=== PATIENT | female | born 1955 | race Caucasian/White ===

== ENCOUNTER → 2017-08-03 | Day surgery (SDC) | payer BC ==
[2017-08-03 13:36] VITALS: RESP 16; BMI 36.6
[2017-08-03 15:33] VITALS: BP 129/82; PULSE 66; TEMP 97.5
--- NOTE | 2017-08-03 15:34 | MM ---
EXAMINATION TYPE: MG stereo VAD BX RT DATE OF EXAM: 08/03/2017 COMPARISON: Outside mammogram and ultrasound July 23 2017 and screening mammogram July 20, 2017 CLINICAL HISTORY: Abnormal outside mammogram and ultrasound. TECHNIQUE: Stereotactic guided core biopsy of right breast with clip placement and follow-up two-view mammogram. FINDINGS: The procedure of stereotactic guided core biopsy was explained to the patient. Benefits, alternatives, and risks were discussed. An informed consent was then obtained. Shortest pathway was lateral approach. Cranial approach was chosen by technologist. I performed the localization, then performed the remainder of the procedure. A vacuum assisted biopsy gun was used to obtain multiple core samples. The patient tolerated the procedure well without any immediate complication. The patient was kept in the radiology department for short stay after the procedure and then discharged home in stable condition. Post biopsy mammogram shows the clip to appear in satisfactory position relative to the targeted area of concern on the preprocedure images. Prior persistent density is less well seen after biopsy particularly on CC view. IMPRESSION: SUCCESSFUL, UNCOMPLICATED STEREOTACTIC GUIDED CORE BIOPSY OF AREA OF CONCERN IN THE RIGHT BREAST, FULL PATHOLOGY RESULTS TO FOLLOW. Low to intermediate index of suspicion noted at time of procedure. Pathology Results: Benign BREAST, RIGHT, STEREOTACTIC CORE BIOPSY: FIBROCYSTIC CHANGE (STROMAL FIBROSIS, CYST FORMATION, ADENOSIS, COLUMNAR CELL CHANGE AND DUCT HYPERPLASIA). PSEUDOANGIOMATOUS STROMAL HYPERPLASIA (PASH). Recommendation Surgical consult of the right breast. (PASH) ELAINE
== END ==
LOC: RADMAMWWP 13:18
PROVIDERS: ATTEND Surgery
DX: N60.31 Fibrosclerosis of right breast (principal); N60.01 Solitary cyst of right breast; N60.21 Fibroadenosis of right breast; R92.8 Other abnormal and inconclusive findings on diagnostic imaging of breast
CPT/HCPCS: 88305; 19081; A4648; J2001

== ENCOUNTER → 2019-09-15 | Outpatient (CLI) | payer MEDICARE ==
--- NOTE | 2019-09-15 14:14 | MM ---
Reason for exam: screening (asymptomatic). Last mammogram was performed 1 year and 1 month ago. History: Patient is postmenopausal. Benign MG stereo VAD BX RT of the right breast, August 03, 2017. Took hormonal contraceptives for 30 years. Physical Findings: A clinical breast exam by your physician is recommended on an annual basis and results should be correlated with mammographic findings. MG 3D Screening Mammo W/Cad Bilateral CC and MLO view(s) were taken. Prior study comparison: August 23, 2018, bilateral MG 3d screening mammo w/cad. August 03, 2017, mammogram, performed at [facility]. There are scattered fibroglandular densities. There are benign appearing round calcifications bilaterally. Previous mammotome biopsy in the right breast at [facility]. There is chronic nodularity in the right breast. There is no discrete abnormality. ASSESSMENT: Benign, BI-RAD 2 RECOMMENDATION: Routine screening mammogram of both breasts in 1 year.
== END ==
LOC: RADMAMWWP 07:06
PROVIDERS: ATTEND Family Medicine
DX: Z12.31 Encounter for screening mammogram for malignant neoplasm of breast (principal)
CPT/HCPCS: 77063; 77067

== ENCOUNTER → 2021-03-13 | Outpatient (CLI) | payer MEDICARE ==
--- NOTE | 2021-03-14 11:27 | MM ---
Reason for exam: screening (asymptomatic). Last mammogram was performed 1 year and 6 months ago. History: Patient is postmenopausal. Benign MG stereo VAD BX RT of the right breast, August 03, 2017. Took hormonal contraceptives for 30 years. Physical Findings: A clinical breast exam by your physician is recommended on an annual basis and results should be correlated with mammographic findings. MG 3D Screening Mammo W/Cad Bilateral CC and MLO view(s) were taken. Prior study comparison: September 15, 2019, bilateral MG 3d screening mammo w/cad. August 23, 2018, bilateral MG 3d screening mammo w/cad. There are scattered fibroglandular densities. There are benign appearing round dystrophic calcifications bilaterally. Previous mammotome biopsy in the right breast. There is chronic nodularity in the right breast at clip. There is no new dominant lesion. Asymmetric breast tissue in the left breast, stable. ASSESSMENT: Benign, BI-RAD 2 RECOMMENDATION: Routine screening mammogram of both breasts in 1 year.
== END | disposition home or self-care (01) ==
LOC: RADMAMWWP 07:55
PROVIDERS: ATTEND Family Medicine
DX: Z12.31 Encounter for screening mammogram for malignant neoplasm of breast (principal); Z78.0 Asymptomatic menopausal state
CPT/HCPCS: 77063; 77067

== ENCOUNTER → 2023-08-17 | Outpatient (CLI) | payer MEDICARE ==
--- NOTE | 2023-08-17 09:38 | MM ---
Reason for Exam: Screening (asymptomatic). Last mammogram was performed 1 year(s) and 3 month(s) ago. Patient History: Menarche at age 10. First Full-Term at age 23. Postmenopausal. Patient used Hormonal Contraceptives for 30 years. 08/03/2017, Benign Core Biopsy on the right side. Paternal cousin had breast cancer, age 24. Risk Values: Sheyla 5 year model risk: 2.3%. NCI Lifetime model risk: 6.6%. Prior Study Comparison: 09/15/2019 Bilateral Screening Mammogram, [facility]. 03/13/2021 Bilateral Screening Mammogram, [facility]. 06/02/2022 Bilateral MG 3D screening mammo w/cad, [facility]. Tissue Density: There are scattered fibroglandular densities. Findings: Analyzed By CAD. Asymmetric prominent tissue with biopsy clip in the posterior upper outer aspect right breast is redemonstrated. Benign calcifications redemonstrated within the right breast. Stable prominent tissue in the posterior upper outer aspect left breast. No new suspicious mass within either breast. No suspicious grouped calcifications within either breast. Overall Assessment: Benign, BI-RAD 2 Management: Screening Mammogram of both breasts in 1 year. A clinical breast exam by your physician is recommended on an annual basis and results should be correlated with mammographic findings. Note on Sheyla scores and lifetime risk: 1. A Sheyla score greater than 3% is considered moderate risk. If this is the case, consider specialist referral to assess eligibility for a risk reducing agent. If overall lifetime risk for the development of breast cancer is 20% or higher, the patient may qualify for future screening with alternating mammogram and breast MRI. Electronically signed and approved by: German Clifford D.O.
== END | disposition home or self-care (01) ==
LOC: RADMAMWWP 09:11
PROVIDERS: ATTEND Family Medicine
DX: Z12.31 Encounter for screening mammogram for malignant neoplasm of breast (principal); Z78.0 Asymptomatic menopausal state; Z80.3 Family history of malignant neoplasm of breast
CPT/HCPCS: 77063; 77067

== ENCOUNTER → 2023-11-04 | Outpatient (CLI) | payer MEDICARE ==
--- NOTE | 2023-11-05 09:53 | CA ---
Transthoracic Echo Report Name: Ivette Platt Age: 68 Gender: F : 1955 Exam Date: 11/04/2023 12:58 Exam Location: [facility] Ht (in): 62 Wt (lb): 190 Ordering Physician: Michael Laughlin MD Attending/Referring Phys: Sherry Adan [facility] [employer] Hoda Allen RDCS Procedure CPT: Indications: Z78.0 ASYMPTOMATIC MENOPAUSAL STATE I10 HTN Cardiac Hx: Technical Quality: Fair Contrast 1: Total Dose (mL): Contrast 2: Total Dose (mL): MEASUREMENTS (Male / Female) Normal Values 2D ECHO LV Diastolic Diameter PLAX 2.5 cm 4.2 - 5.9 / 3.9 - 5.3 cm LV Systolic Diameter PLAX 1.6 cm IVS Diastolic Thickness 1.5 cm 0.6 - 1.0 / 0.6 - 0.9 cm LVPW Diastolic Thickness 1.3 cm 0.6 - 1.0 / 0.6 - 0.9 cm LV Relative Wall Thickness 1.1 RV Internal Dim ED PLAX 2.9 cm LA Volume 46.4 cm??? 18 - 58 / 22 - 52 cm??? LA Volume Index 23.4 cm???/m??? 16 - 28 cm???/m??? M-MODE Aortic Root Diameter MM 3.1 cm LA Systolic Diameter MM 4.4 cm LA Ao Ratio MM 1.4 DOPPLER AV Peak Velocity 187.6 cm/s AV Peak Gradient 14.1 mmHg AV Mean Velocity 126.0 cm/s AV Mean Gradient 7.3 mmHg AV Velocity Time Integral 32.6 cm LVOT Peak Velocity 154.5 cm/s LVOT Peak Gradient 9.5 mmHg LVOT Velocity Time Integral 29.5 cm MV Area PHT 3.2 cm??? Mitral E Point Velocity 81.2 cm/s Mitral A Point Velocity 107.3 cm/s Mitral E to A Ratio 0.8 MV Deceleration Time 234.8 ms MV E' Velocity 8.8 cm/s Mitral E to MV E' Ratio 9.2 TR Peak Velocity 215.9 cm/s TR Peak Gradient 18.6 mmHg Right Ventricular Systolic Press 22.3 mmHg FINDINGS Left Ventricle Moderately increased left ventricular wall thickness. Left ventricular cavity size normal. Normal left ventricular systolic function with no obvious regional wall motion abnormalities. Left ventricular ejection fraction is estimated at 55-60 %. Right Ventricle Normal right ventricular size and function. Right ventricular systolic pressure within normal limits. Right Atrium Normal right atrial size. Left Atrium Normal left atrial size. Mitral Valve Structurally normal mitral valve. Mild mitral annular calcification. Trace mitral regurgitation. Aortic Valve No aortic valve stenosis or regurgitation. Thickened aortic valve without stenosis. Tricuspid Valve Structurally normal tricuspid valve. Trace tricuspid regurgitation. Pulmonic Valve Structurally normal pulmonic valve. Pericardium No pericardial effusion. Aorta Normal size aortic root and proximal ascending aorta. CONCLUSIONS Normal LV systolic function Previewed by: Dr. Haja Chu MD (Electronically Signed) Final Date: 05 November 2023 09:52
== END | disposition home or self-care (01) ==
LOC: RADECHMAIN 12:45
PROVIDERS: ATTEND Family Medicine
DX: I10 Essential (primary) hypertension (principal); Z78.0 Asymptomatic menopausal state
CPT/HCPCS: 93306

== ENCOUNTER → 2025-01-23 | Outpatient (CLI) | payer MEDICARE ==
--- NOTE | 2025-01-23 10:51 | MM ---
Reason for Exam: Screening (asymptomatic). Last mammogram was performed 1 year(s) and 5 month(s) ago. Patient History: Menarche at age 10. First Full-Term at age 23. Postmenopausal. Patient used Hormonal Contraceptives for 30 years. 08/03/2017, Benign Core Biopsy on the right side. Paternal cousin had breast cancer, age 24. Risk Values: Sheyla 5 year model risk: 2.3%. NCI Lifetime model risk: 6.3%. Prior Study Comparison: 03/13/2021 Bilateral Screening Mammogram, [facility]. 06/02/2022 Bilateral MG 3D screening mammo w/cad, [facility]. 08/17/2023 Bilateral MG 3D screening mammo w/cad, [facility]. Tissue Density: There are scattered areas of fibroglandular density. Findings: Analyzed By CAD. Stable biopsy clip at the site of asymmetric tissue in the right breast. There is a new 9 mm oval mass in the middle depth outer aspect left breast. Overall Assessment: Incomplete: need additional imaging evaluation, BI-RAD 0 Management: Diagnostic Mammogram of the left breast. Diagnostic Breast Ultrasound of the left breast. Advised 3-D true lateral view and targeted ultrasound evaluation of new area of concern left breast. Patient should continue monthly self-breast exams. A clinical breast exam by your physician is recommended on an annual basis. This exam should not preclude additional follow-up of suspicious palpable abnormalities. Note on Sheyla scores and lifetime risk: 1. A Sheyla score greater than 3% is considered moderate risk. If this is the case, consider specialist referral to assess eligibility for a risk reducing agent. 2. If overall lifetime risk for the development of breast cancer is 20% or higher, the patient may qualify for future screening with alternating mammogram and breast MRI. [facility], , 01/23/2025 10:48 AM. Electronically signed and approved by: Tim Cain M.D.
== END | disposition home or self-care (01) ==
LOC: RADMAMWWP 10:02
PROVIDERS: ATTEND Family Medicine
DX: Z12.31 Encounter for screening mammogram for malignant neoplasm of breast (principal); R92.323 Mammographic fibroglandular density, bilateral breasts; Z78.0 Asymptomatic menopausal state; Z80.3 Family history of malignant neoplasm of breast; Z92.0 Personal history of contraception
CPT/HCPCS: 77063; 77067

== ENCOUNTER → 2025-01-30 | Outpatient (CLI) | payer MEDICARE ==
--- NOTE | 2025-01-30 15:29 | MM ---
Reason for Exam: Additional evaluation requested from abnormal screening. Last screening mammogram was performed less than 1 month ago. Patient History: Menarche at age 10. First Full-Term at age 23. Postmenopausal. Patient used Hormonal Contraceptives for 30 years. 08/03/2017, Benign Core Biopsy on the right side. Paternal cousin had breast cancer, age 24. Risk Values: Sheyla 5 year model risk: 2.3%. NCI Lifetime model risk: 6.3%. Prior Study Comparison: 06/02/2022 Bilateral MG 3D screening mammo w/cad, [facility]. 08/17/2023 Bilateral MG 3D screening mammo w/cad, [facility]. 01/23/2025 Bilateral MG 3D screening mammo w/cad, [facility]. Tissue Density: Left: The breasts are heterogeneously dense, which may obscure small masses. Findings: Analyzed By CAD. Nodular asymmetric density upper outer left breast 7.5 cm from the nipple measuring 9 mm. Ultrasound is recommended. Overall Assessment: Incomplete: need additional imaging evaluation, BI-RAD 0 Management: Diagnostic Breast Ultrasound of the left breast. . Results were given to the patient verbally at the time of exam. Patient should continue monthly self-breast exams. A clinical breast exam by your physician is recommended on an annual basis. This exam should not preclude additional follow-up of suspicious palpable abnormalities. Note on Sheyla scores and lifetime risk: 1. A Sheyla score greater than 3% is considered moderate risk. If this is the case, consider specialist referral to assess eligibility for a risk reducing agent. 2. If overall lifetime risk for the development of breast cancer is 20% or higher, the patient may qualify for future screening with alternating mammogram and breast MRI. [facility], , 01/30/2025 3:16 PM. Electronically signed and approved by: Robert Stewart M.D. Radiologis
--- NOTE | 2025-01-30 15:37 | USB ---
Reason for Exam: Additional evaluation requested from abnormal screening. Patient History: Menarche at age 10. First Full-Term at age 23. Postmenopausal. Patient used Hormonal Contraceptives for 30 years. 08/03/2017, Benign Core Biopsy on the right side. Paternal cousin had breast cancer, age 24. Risk Values: Sheyla 5 year model risk: 2.3%. NCI Lifetime model risk: 6.3%. Technique: Method: Targeted. Doppler: Color. Patient Position: RPO. Prior Study Comparison: 06/02/2022 Bilateral MG 3D screening mammo w/cad, [facility]. 08/17/2023 Bilateral MG 3D screening mammo w/cad, [facility]. 01/23/2025 Bilateral MG 3D screening mammo w/cad, [facility]. Findings: The upper outer quadrant of the left breast, the axilla of the left breast and the retroareolar of the left breast were scanned. Elongated hypoechoic area likely reflecting a cyst cluster at the left 3:00 position 7 cm from the nipple measuring 7 mm in size. There is also a mildly prominent lymph node within the left axilla without cortical thickening. Six-month follow-up is recommended for both areas. Overall Assessment: Probably benign, BI-RAD 3 Management: Diagnostic Breast Ultrasound of the left breast in 6 months. A clinical breast exam by your physician is recommended on an annual basis and results should be correlated with mammographic findings. This exam should not preclude additional follow-up of suspicious palpable abnormalities. Results were given to the patient verbally at the time of exam. [facility], , 01/30/2025 3:33 PM. Electronically signed and approved by: Robert Stewart M.D. Radiologis
== END | disposition home or self-care (01) ==
LOC: RADMAMWWP 14:54
PROVIDERS: ATTEND Family Medicine
DX: R92.8 Other abnormal and inconclusive findings on diagnostic imaging of breast (principal); R92.332 Mammographic heterogeneous density, left breast; Z78.0 Asymptomatic menopausal state; Z80.3 Family history of malignant neoplasm of breast; Z92.0 Personal history of contraception
CPT/HCPCS: 77061; 77065